=== PATIENT | male | born 1945 | race Caucasian/White ===

== ENCOUNTER 2016-07-06 06:38 | Day surgery (SDC) | payer OTHER, BC ==
[2016-07-03 15:02] VITALS: BMI 32.3
[2016-07-06] MEDS ORDERED: PROPOFOL 20 ML ONE ×3 (07:20)
[2016-07-06] MEDS ORDERED: ePHEDrine SULFATE 50 MG/1 ML AMPULE ONE (07:20)
[2016-07-06] MEDS ORDERED: SUCCINYLCHOLINE CHLORIDE 200 MG/10 ML VIAL ONE (07:20)
[2016-07-06] MEDS ORDERED: PHENYLEPHRINE HCL 10 MG/1 ML SINGLE DOSE VIAL ONE (07:20)
[2016-07-06] MEDS ORDERED: LIDOCAINE HCL/PF 1% SDV 5ML VIAL ONE (07:42)
[2016-07-06 08:38] VITALS: TEMP 98.6
[2016-07-06 09:34] VITALS: BP 117/63; PULSE 60
--- NOTE | 2016-07-07 11:48 | PATH ---
Surgical Pathology Report Patient Name: SHIREEN OCHOA [facility]. Rec. #: [id number] /Age/Gender: 1945 (Age: 71) / M Account: [id number] Location: U-ENDOSCOPY Taken: 07/06/2016 Received: 07/06/2016 Reported: 07/07/2016 Physicians: Jb Alvarez M.D. Specimen(s) Received BX POLYP SIGMOID Clinical History Screening Diverticulosis, chronic constipation, polyp at sigmoid, grade 2 hemorrhoids Final Diagnosis COLON, SIGMOID, BIOPSY: HYPERPLASTIC POLYP. Electronically Signed Venu Martinez M.D. Gross Description Received in formalin, labeled "biopsy sigmoid polyp" are 6 rico, irregular portions of soft tissue ranging from 0.1-0.3 cm. in greatest dimension. The specimens are submitted in toto in one cassette. 07/06/201607/06/2016
== END 2016-07-06 09:35 | disposition home or self-care (01) ==
LOC: JASU-ENDO 06:38
PROVIDERS: ATTEND Internal Medicine Gastroenterology
PROC: 0DBN8ZX Excision of Sigmoid Colon, Via Natural or Artificial Opening Endoscopic, Diagnostic (ICD-10-PCS; principal; 2016-07-06 07:30)
DX: Z12.11 Encounter for screening for malignant neoplasm of colon (principal); D12.5 Benign neoplasm of sigmoid colon; K57.30 Diverticulosis of large intestine without perforation or abscess without bleeding; K64.8 Other hemorrhoids
CPT/HCPCS: 88305-TC

== ENCOUNTER 2018-08-13 13:38 | Emergency (ER) | payer OTHER, BC ==
[2018-08-13 13:45] VITALS: TEMP 98.7; BMI 29.5
[2018-08-13] MEDS ORDERED: GLUCAGON 1 MG KIT IVPUSH ONE (14:07)
[2018-08-13] MEDS ORDERED: ONDANSETRON 4 MG/2 ML VIAL IVPB ONE (14:08)
[2018-08-13] MEDS ORDERED: ONDANSETRON 4 MG/2 ML VIAL ONE (14:12)
[2018-08-13] MEDS ORDERED: GlUCAGON HUMAN RECOMBINANT 1 MG/VIAL ONE (14:12)
--- NOTE | 2018-08-13 14:18 | PDOC ---
History of Present Illness - General Chief Complaint: Dysphagia Stated Complaint: TROUBLE SWALLOWING Time Seen by Provider: 08/13/18 13:57 History Source: Patient Exam Limitations: No Limitations - History of Present Illness Initial Comments: 08/13/18 14:14 Pt is a 73yo M with PMH of Achalasia s/p POEM 01/2018 at [facility], HTN presenting to ED with difficulty swallowing. Pt states yesterday he was at a grocery store trying samples. He had a sample of [place] bread and afterward he regurgitated it. He has been unable to swallow and keep food and saliva down since. He denies abdominal pain, n/v/d, hematemesis, bloody stools, chest pain, sob, cough , fevers, chills. He had an endoscopy done 06/2107 and was told that he has some inflammation but everything else appeared fine. PMD: Cyndy? GI: Paulino Jackson ([facility]) Cards: [place] PMH: see hpi PSH: see hpi Meds: amlodipine, hctz, protonix Allergies: epinephrine, codeine Past History - Past Medical History Allergies/Adverse Reactions: Allergies Allergy/AdvReac Type Severity Reaction Status Date / Time epinephrine AdvReac Intermediate Verified 07/18/14 23:02 codeine AdvReac Verified 08/13/18 15:46 Home Medications: Ambulatory Orders Amlodipine Besylate [Norvasc -] 2.5 mg PO DAILY 01/22/12 Atorvastatin Ca [Lipitor] 10 mg PO HS 01/22/12 Candesartan/Hydrochlorothiazid [Atacand Hct 16-12.5 mg Tab] 16 mg PO DAILY 01/21 Multivitamins [Tab-A-Vit -] 1 tab PO DAILY 07/01/16 Ubidecarenone [Co Q-10] 10 mg PO DAILY 07/01/16 Pantoprazole Sodium [Protonix] 0 mg PO DAILY 08/13/18 Anemia: No Asthma: No Cancer: Yes (PROSTATE) Cardiac Disorders: Yes (BLOCKAGE) CVA: No COPD: No Dementia: No Diabetes: No GI Disorders: No Disorders: No HTN: Yes Hypercholesterolemia: Yes Liver Disease: No Seizures: No Thyroid Disease: No - Surgical History Abdominal Surgery: No Appendectomy: Yes Cardiac Surgery: Yes (CARDIAC CATHERIZATION) Cholecystectomy: No GI Surgery: Yes (endoscopic myotomy) Lung Surgery: No Neurologic Surgery: No - Suicide/Smoking/Psychosocial Hx Smoking Status: No Smoking History: Unknown if ever smoked Have you smoked in the past 12 months: No Number of Cigarettes Smoked Daily: 0 Information on smoking cessation initiated: No Hx Alcohol Use: No Drug/Substance Use Hx: No Substance Use Type: None Hx Substance Use Treatment: No Review of Systems - Review of Systems Constitutional: No: Chills, Fever, Weakness HEENTM: No: Symptoms Reported Respiratory: No: Cough, Shortness of Breath Cardiac (ROS): No: Chest Pain, Lightheadedness, Palpitations, Syncope ABD/GI: Yes: See HPI, Difficulty Swallowing, Vomiting. No: Constipated, Diarrhea, Nausea, Rectal Bleeding, Abdominal cramping, Tarry Stools : No: Symptoms Reported Musculoskeletal: No: Symptoms Reported Integumentary: No: Symptoms Reported Neurological: No: Symptoms reported *Physical Exam - Vital Signs Last Vital Signs Temp Pulse Resp BP Pulse Ox 98.7 F 112 H 16 167/91 98 08/13/18 13:40 08/13/18 13:40 08/13/18 13:40 08/13/18 13:40 08/13/18 13:40 - Physical Exam General Appearance: Yes: Nourished, Appropriately Dressed, Other (pt actively spitting up saliva). No: Apparent Distress HEENT: positive: EOMI, SABRINA, Normal ENT Inspection Neck: positive: Trachea midline, Supple Respiratory/Chest: positive: Lungs Clear, Normal Breath Sounds. negative: Crackles, Wheezing Cardiovascular: positive: Regular Rhythm, Regular Rate, S1, S2. negative: Edema , JVD, Murmur Vascular Pulses: Carotid (R): 2+, Carotid (L): 2+, Dorsalis-Pedis (R): 2+, Doralis-Pedis (L): 2+ Gastrointestinal/Abdominal: positive: Normal Bowel Sounds, Soft. negative: Tender Musculoskeletal: negative: CVA Tenderness Extremity: positive: Normal Capillary Refill. negative: Pedal Edema, Swelling, Calf Tenderness Integumentary: positive: Normal Color, Dry, Warm Neurologic: positive: voip network technician II-XII NML intact, Fully Oriented, Alert, Normal Mood/ Affect, Normal Response, Motor Strength / ED Treatment Course - LABORATORY CBC & Chemistry Diagram: 08/13/18 14:25 08/13/18 14:25 - RADIOLOGY Radiology Studies Ordered: Category Date Time Status CHEST PA & LAT [RAD] Stat Radiology 08/13/18 14:07 Ordered Medical Decision Making - Medical Decision Making 08/13/18 14:53 Pt is a 73yo M with PMH of Achalasia s/p POEM 01/2018 at [facility], [facility], [place] presenting to ED with difficulty swallowing. Pt states yesterday he was at a grocery store trying samples. He had a sample of [place] bread and afterward he regurgitated it. He has been unable to swallow and keep food and saliva down since. He denies abdominal pain, n/v/d, hematemesis, bloody stools, chest pain, sob, cough , fevers, chills. He had an endoscopy done 06/2107 and was told that he has some inflammation but everything else appeared fine. Vitals: tachy 112 otherwise wnl PE: benign, actively spitting up saliva. no abdominal tenderness, lungs cta Ddx includes but not limited to food impaction, esophageal spasms, stricture, atypical acs, gastritis, gerd, electrolyte/metabolic abnormality most likely food impaction given history -labs, lipase, trop -ekg, cxr -glucagon, zofran, fluids -GI consult likely admission 08/13/18 14:58 EKG- nsr at 97 incomplete RBBB, no britney or std, QTc 467, IN 198 08/13/18 15:50 Dr. Carroll answered page, is here evaluating pt. Pt is tolerating water and tea. Per Dr Carroll, pt does not need immediate endoscopy. Pt states he is feeling better. tolerated liquids and did not regurgitate after 40 minutes. Pt is stable, safe for dc home. given return precautions. will f/u with GI. *DC/Admit/Observation/Transfer Diagnosis at time of Disposition: Achalasia Difficulty in swallowing Qualifiers: Dysphagia type: esophageal phase Qualified Code(s): R13.10 - Dysphagia, unspecified - Discharge Dispostion Disposition: HOME Condition at time of disposition: Improved Decision to Admit order: No - Referrals Referrals: Dharmesh rAmstrong MD [Primary Care Provider] - Nicholas Jackson MD [Staff Physician] - - Patient Instructions Printed Discharge Instructions: Achalasia Additional Instructions: You were seen in the emergency room today for difficulty swallowing. The medications helped. I recommend following up with Dr. Jackson or Dr. Bob this week. Please do not eat any hard solids, stick to softer solid foods such as bananas and rice. Stay away from bread, tough meats and large chunks of food. Please chew completely before swallowing. Drink plenty of fluids. Come back to the emergency room if you are unable to swallow again, you have abdominal pain or if any new concerning symptom develops. Thank you - Post Discharge Activity
[2018-08-13] MEDS ORDERED: SODIUM CHLORIDE 1,000 ML IV STA (14:32)
[2018-08-13 14:35] LABS: BASO % 0.6 % (0-2.0); EOS % 4.2 % (0-4.5); HEMOGLOBIN 15.5 GM/dL (11.7-16.9); LYMPH % 13.8 % (8-40); MCH 32.7 pg (25.7-33.7); MCHC 34.4 g/dl (32.0-35.9); MEAN PLT VOLUME 7.8 fl (7.5-11.1); MONO % 8.1 % (3.8-10.2); NEUT % 73.3 % (42.8-82.8); PLATELET COUNT 212 K/MM3 (134-434); RBC 4.74 M/mm3 (4.00-5.60); RDW 12.7 % (11.9-15.9); WHITE BLOOD COUNT 8.9 K/mm3 (4.0-10.0)
--- NOTE | 2018-08-13 14:51 | PDOC ---
Attending Attestation - HPI HPI: 08/13/18 15:04 The patient is a 73 year old male with a past medical history of achalasia (s/p POEM 01/2018 at [facility]) and HTN here today for evaluation of difficulty swallowing. Patient reports that he ate a sample at the grocery store yesterday and regurgitated it later that day. Since then he has been unable to swallow or keep any food down. Patient denies headache, lightheadedness. Denies fever, chills. Denies chest pain, shortness of breath. Denies nausea, vomiting, diarrhea, abdominal pain. Allergies: epinephrine, codeine GI: Nicholas Jackson - Physicial Exam PE: 08/13/18 15:04 GENERAL: Awake, alert, and fully oriented, in no acute distress HEAD: No signs of trauma EYES: PERRLA, EOMI, sclera anicteric, conjunctiva clear ENT: +patient spitting up intermittently. Auricles normal inspection, hearing grossly normal, nares patent. Moist mucosa NECK: Normal ROM, supple, JVD, or masses LUNGS: Breath sounds equal, clear to auscultation bilaterally. No wheezes, and no crackles HEART: Regular rate and rhythm, normal S1 and S2, no murmurs, rubs or gallops ABDOMEN: Soft, nontender. No guarding, no rebound. No masses EXTREMITIES: Normal range of motion, no edema. No clubbing or cyanosis. No cords, erythema, or tenderness NEUROLOGICAL: Cranial nerves II through XII grossly intact. Normal speech SKIN: Warm, Dry, normal turgor, no rashes or lesions noted. <David Caldwell - Last Filed: 08/13/18 15:04> - Resident Resident Name: Radha Lucia - ED Attending Attestation I have performed the following: I have examined & evaluated the patient, The case was reviewed & discussed with the resident, I agree w/resident's findings & plan, Exceptions are as noted - Medical Decision Making 08/13/18 14:36 A portion of this note was documented by scribe services under my direction. I have reviewed the details of the note, within reason, and agree with the documentation with the following case summary and management plan written by me. Patient treated in the ED. Nursing notes are reviewed and incorporated into the medical decision-making. Vital signs reviewed. Peripheral IV access obtained by the nurse, laboratory studies are drawn and sent, reviewed and interpreted by myself. Vital Signs Temp Pulse Resp BP Pulse Ox 98.7 F 112 H 16 167/91 98 08/13/18 13:40 08/13/18 13:40 08/13/18 13:40 08/13/18 13:40 08/13/18 13:40 73-year-old male with history of hypertension, achalasia status post POEM procedure presents with food impaction. Yesterday, the patient had ate some food and a tiny bread and noted a stuck sensation. Since then anything that he can takes including fluid or food he vomits. Denies chest pain or abdominal pain. No fevers or chills. I suspect the patient likely has food impaction. Trial glucagon and Zofran. However, we'll consult patient's market research associate, Dr. Jackson. Patient will likely need an endoscopy. 08/13/18 15:57 CBC, BMP 08/13/18 14:25 08/13/18 14:25 CMP Sodium 142 mmol/L (136-145) 08/13/18 14:25 Potassium 3.9 mmol/L (3.5-5.1) 08/13/18 14:25 Chloride 109 mmol/L (98-107) H 08/13/18 14:25 Carbon Dioxide 26 mmol/L (21-32) 08/13/18 14:25 Anion Gap 7 MMOL/L (8-16) L 08/13/18 14:25 BUN 16 mg/dL (7-18) 08/13/18 14:25 Creatinine 0.9 mg/dL (0.55-1.3) 08/13/18 14:25 Creat Clearance w eGFR 82.26 (>60) 08/13/18 14:25 Random Glucose 105 mg/dL (74-106) 08/13/18 14:25 Calcium 9.4 mg/dL (8.5-10.1) 08/13/18 14:25 Total Bilirubin 0.6 mg/dL (0.2-1) 08/13/18 14:25 AST 12 U/L (15-37) L 08/13/18 14:25 ALT 22 U/L (13-61) 08/13/18 14:25 Alkaline Phosphatase 65 U/L (45-117) 08/13/18 14:25 Troponin I < 0.02 ng/ml (0.00-0.05) 08/13/18 14:25 Total Protein 7.7 g/dl (6.4-8.2) 08/13/18 14:25 Albumin 4.1 g/dl (3.4-5.0) 08/13/18 14:25 Lipase 99 U/L (73-393) 08/13/18 14:25 Dr. Carroll here evaluating patient. Had seen and evaluated him. Pt is now tolerating PO. If patient is able to keep liquids without vomiting, pt can be discharged with outpatient followup. <Alejandro Nascimento - Last Filed: 08/13/18 15:58> Heart Score/ECG Review #1 ECG reviewed & interpreted by me at: 14:10 08/13/18 14:35 NSR 97, incomplete RBBB, no std/britney, normal axis, normal intervals, QTC 467 msec <Alejandro Nascimento - Last Filed: 08/13/18 15:58> Attestations - Attestations 08/13/18 15:04 Documentation prepared by LAURA Cruz, acting as medical data entry clerk for Alejandro Nascimento MD. <David Caldwell - Last Filed: 08/13/18 15:04>
[2018-08-13 15:04] LABS: ALBUMIN 4.1 g/dl (3.4-5.0); ALK PHOS 65 U/L (45-117); ANION GAP 7 MMOL/L (8-16); BILIRUBIN,TOTAL 0.6 mg/dL (0.2-1); BLOOD UREA NITROGEN 16 mg/dL (7-18); CALCIUM 9.4 mg/dL (8.5-10.1); CHLORIDE 109 mmol/L (98-107); CO2 26 mmol/L (21-32); CREATININE 0.9 mg/dL (0.55-1.3); GLUCOSE,RANDOM 105 mg/dL (74-106); POTASSIUM 3.9 mmol/L (3.5-5.1); SGOT/AST 12 U/L (15-37); SGPT/ALT 22 U/L (13-61); SODIUM 142 mmol/L (136-145); TOT PROT 7.7 g/dl (6.4-8.2)
[2018-08-13 15:10] LABS: LIPASE 99 U/L (73-393)
[2018-08-13 17:09] LABS: INR 1.04 (0.83-1.09); PROTHROMBIN TIME (PATIENT) 12.3 SEC (9.7-13.0)
[2018-08-13 17:10] LABS: ACTIVATED PTT 32.7 SECONDS (25.2-36.5)
[2018-08-13 17:11] VITALS: BP 142/78; PULSE 77
--- NOTE | 2018-08-15 10:35 | EKG ---
Test Reason : Blood Pressure : / mmHG Vent. Rate : 097 BPM Atrial Rate : 097 BPM P-R Int : 198 ms QRS Dur : 094 ms QT Int : 368 ms P-R-T Axes : 054 051 046 degrees QTc Int : 467 ms NORMAL SINUS RHYTHM INCOMPLETE RIGHT BUNDLE BRANCH BLOCK BORDERLINE ECG WHEN COMPARED WITH ECG OF 18-JUL-2014 23:39, INCOMPLETE RIGHT BUNDLE BRANCH BLOCK IS NOW PRESENT Confirmed by GOLDEN ALTAMIRANO, BECCA ([id number]) on 08/15/2018 10:34:39 AM Referred By: Confirmed By:BECCA FRANKS MD
== END 2018-08-13 17:05 | disposition home or self-care (01) ==
LOC: JER 13:38
PROC: 3E0337Z Introduction of Electrolytic and Water Balance Substance into Peripheral Vein, Percutaneous Approach (ICD-10-PCS; principal; 2018-08-13)
PROC: 3E033GC Introduction of Other Therapeutic Substance into Peripheral Vein, Percutaneous Approach (ICD-10-PCS; 2018-08-13)
PROC: 3E033GC Introduction of Other Therapeutic Substance into Peripheral Vein, Percutaneous Approach (ICD-10-PCS; 2018-08-13)
DX: K22.0 Achalasia of cardia (principal); I25.10 Atherosclerotic heart disease of native coronary artery without angina pectoris; I10 Essential (primary) hypertension; Z98.61 Coronary angioplasty status; E78.00 Pure hypercholesterolemia, unspecified
CPT/HCPCS: 36415; 71045-TC-FY; 80053; 83690; 84484; 85025; 85610; 85730; 86850; 86900; 86901; 93005; 93010; 96361; 96374; 96375; 99282-25; J7030